=== PATIENT | male | born 1975 | race Caucasian/White ===

== ENCOUNTER 2021-09-16 14:33 | Emergency (ER) | payer BC ==
[~2021-09-16] VITALS: Ht 182.9 cm; Wt 82.0 kg
[2021-09-16] MEDS ORDERED: SODIUM CHLORIDE 0.9% 1,000 ML IV ONE (16:00)
[2021-09-16] MEDS ORDERED: TETANUS, DIPHTHERIA, PERTUSSIS VAC/PF 0.5ML (>10YR OLD) IM ONE (16:00)
[2021-09-16 16:12] LABS: BASOPHILS % 0.4 % (0.0-2.0); EOSINOPHILS % 0.2 % (0.0-5.0); HEMATOCRIT. 44.8 % (42.0-52.0); LYMPHOCYTES % 16.3 % (20.0-50.0); MEAN CORPUSCULAR HEMOGLOBIN 29.6 pg (28.0-32.0); MEAN CORPUSCULAR VOLUME 88.2 fL (80.0-94.0); MEAN PLATELET VOLUME 9.4 fl (7.4-10.4); NEUTROPHILS % 73.1 % (40.0-76.0); PLATELET 212 x1000/uL (130-400); RED BLOOD CELL COUNT 5.08 mill/uL (4.7-6.1); RED CELL DISTRIBUTION WIDTH 13.3 % (11.6-14.6)
[2021-09-16 16:15] LABS: CHLORIDE 104 mEq/L (98-107)
[2021-09-16 17:59] VITALS: BP 125/84
== END 2021-09-16 18:00 | disposition home or self-care (01) ==
LOC: ER 14:56
DX: M25.511 Pain in right shoulder (principal); R51.9 Headache, unspecified; E78.00 Pure hypercholesterolemia, unspecified; V43.53XA Car driver injured in collision with pick-up truck in traffic accident, initial encounter; Y93.89 Activity, other specified; Y92.488 Other paved roadways as the place of occurrence of the external cause
CPT/HCPCS: 36415; 70450; 71045; 72125; 73030; 80053; 83690; 85025; 86850; 86900; 86901; 96360; 99285; J7030